=== PATIENT | male | born 1960 | race Caucasian/White ===

== ENCOUNTER 2020-10-21 09:10 | Day surgery (SDC) | payer OTHER ==
[2020-10-18 15:21] LABS: BASOPHILS # (AUTO) 0.1 X10'3 (0-0.2); BASOPHILS % (AUTO) 0.7 % (0-1); EOSINOPHILS # (AUTO) 0.2 X10'3 (0-0.9); EOSINOPHILS % (AUTO) 2.5 % (0-6); LYMPHOCYTES # (AUTO) 2.2 X10'3 (1.1-4.8); LYMPHOCYTES % (AUTO) 22.1 % (21-51); MEAN CORPUSCULAR HEMOGLOBIN 31.7 PG (27.0-31.0); MEAN CORPUSCULAR HGB CONC 34.5 g/dL (33.0-36.5); MEAN CORPUSCULAR VOLUME 91.8 FL (78-98); MEAN PLATELET VOLUME 7.2 FL (7.4-10.4); MONOCYTES % (AUTO) 9.8 % (2-12); NEUTROPHILS # (AUTO) 6.3 X10'3 (1.8-7.7); NEUTROPHILS % (AUTO) 64.9 % (42-75); PRE OP HEMATOCRIT 44.5 % (42.0-52.0); PRE OP HEMOGLOBIN 15.4 g/dL (14.0-17.9); PRE OP PLATELET COUNT 251 X10'3 (140-440); RED BLOOD COUNT 4.85 X10'6 (4.70-6.10); RED CELL DISTRIBUTION WIDTH 13.5 % (11.5-14.5)
[2020-10-18 15:37] LABS: ALBUMIN 3.9 G/DL (3.4-5.0); ALBUMIN/GLOBULIN RATIO 1.1 (1.1-1.5); ALKALINE PHOSPHATASE 103 IU/L (46-116); BLOOD UREA NITROGEN 12 MG/DL (7-18); BUN/CREATININE RATIO 15.2 (5.4-32.0); CALCIUM 9.6 MG/DL (8.5-10.1); CHLORIDE 104 MMOL/L (99-107); CREATININE 0.79 MG/DL (0.60-1.10); PRE OP ALT 29 U/L (30-65); PRE OP ANION GAP 7 (8-16); PRE OP AST 20 U/L (10-37); PRE OP BILIRUB, TOTAL 1.2 MG/DL (0.0-1.0); PRE OP GLUCOSE 110 MG/DL (70-104); PRE OP POTASSIUM 3.7 MMOL/L (3.4-5.1); PRE OP SODIUM 140 MMOL/L (135-145); TOTAL CARBON DIOXIDE 28.6 MMOL/L (24-32); TOTAL PROTEIN 7.5 G/DL (6.4-8.2); eGFR > 90 ML/MIN
[2020-10-21] VITALS (8 sets, daily range): BP systolic 143–170; BP diastolic 90–110
[~2020-10-21] VITALS: Ht 185.4 cm; Wt 126.5 kg
[~2020-10-21 09:10] MED LIST: AMLO10TA PO; BUPIVAcaine/PF 2.5 mg/ml (0.25%) 30ml vial ONE; BUPR1FIL3 SL; CARV25TA56 PO; DOCUMENT DATE & TIME OF BETA-BLOCKER PO ONE; LIDOcaine 1% 30ml preserv. free vial ONE; LISI40TA13 PO; PANT-47 PO; SPIR50TA5 PO; ceFAZolin 2gm in dextrose, iso 50 ML IV ONE; famotidine 20mg tablet PO ONE; meperidine/PF 25mg/ml syringe IV PRN; morphine 2 MG/ML inj. syringe IV PRN; morphine 4 MG/ML inj SYRINge IV PRN; ondansetron/PF 4mg/2ml inj IV PRN; proCHLORperazine 10 MG/2 ml inj IV PRN; ringers solution, lacted 1,000 ML IV SCH
--- NOTE | 2020-10-21 10:00 | NUR ---
PT PAINFUL 01/27 OVER ALL ACHE D/T STOPPING SUBOXONE RECENTLY. PT WAS FORCED TO STOP BY [facility] D/T RECEIVING NARCOTIC ORDER FOR PENDING SX Addendum: 10/21/20 at 1244 by Kesha Fraga RN Amended: Links added.
[2020-10-21] MEDS ORDERED: amLODIPine 5mg tablet PO ONE (10:35)
[2020-10-21] MEDS ORDERED: carVEDilol 12.5mg tablet PO ONE (10:35)
[2020-10-21] MEDS ORDERED: BUPIVAcaine/PF 2.5mg/ml (0.25%) 10ml vial ONE (12:29)
[2020-10-21] MEDS ORDERED: BUPIVACAINE liposomal/PF 13.3 MG/ML vial IM ONE (12:29)
[2020-10-21] MEDS ORDERED: sevoflurane 250ml liquid IH ONE (12:32)
[2020-10-21] MEDS ORDERED: ketorolac trometh. 30mg/ml inj. ONE (12:32)
[2020-10-21] MEDS ORDERED: MIDAZolam 1 MG/ML 5ML VIAL ONE (12:32)
[2020-10-21] MEDS ORDERED: neostigmine methylsulfate 1 MG/ML 10ml vial ONE (12:32)
[2020-10-21] MEDS ORDERED: fentaNYL /PF 50mcg/ml 5ml ampule ONE (12:32)
[2020-10-21] MEDS ORDERED: glycopyrrolate 0.2mg/ml inj ONE (12:32)
[2020-10-21] MEDS ORDERED: ondansetron/PF 4mg/2ml inj ONE (12:32)
[2020-10-21] MEDS ORDERED: dexamethasone sod phosphate 4mg/ml inj. ONE (12:37)
[2020-10-21] MEDS ORDERED: rocuronium 10mg/ml inj IV ONE ×2 (12:37→13:27)
[2020-10-21] MEDS ORDERED: propofol inj 20 ML IV ONE (12:37)
[2020-10-21] MEDS ORDERED: LIDOcaine 2% (20mg/ml) 5ml vial ONE (12:37)
[2020-10-21] MEDS ORDERED: acetaminophen 1,000mg/100ml IV 100 ML IV ONE (14:24)
[2020-10-21] MEDS ORDERED: oxyCODONE/APAP 10/325mg tablet PO PRN ×2 (14:40)
--- NOTE | 2020-10-21 14:45 | NUR ---
Received from OR via [facility] , accompanied by Anesthesiologist YANG and report given by Anesthesiolgist. PATIENT WITH 20G PIV IN LEFT UE RUNNING LR AT 100. NON VERBAL AT THIS TIME. VSS-MD AWARE OF HTN AT THIS TIME. ABDOMINAL BINDER PRESENT AND 4 ABDOMINAL BANDAIDS PRESENT. VSS. Addendum: 10/21/20 at 1456 by Tomer Amado RN, RN Amended: Links added.
--- NOTE | 2020-10-21 15:50 | NUR ---
I HAVE REVIEWED D/C INSTRUCTIONS WITH PATIENT AND FAMILY AND THEY HAVE VERBALIZED UNDERSTANDING. PATIENT D/C HOME WITH ALL BELONGINGS AND FAMILY GAVE TRANSPORT HOME. PATIENT STATES THAT HE WISHES TO GO HOME. PATIENT DANGLED AT BEDSIDE AND DONNED CLOTHES. COMPLAINS OF HIP PAIN MORE THAN ABDOMINAL PAIN. PATIENT OUT VIA WHEELCHAIR TO PERSONAL VEHICLE. SAFELY TRANSFERED INTO FRONT PASSENGER SEAT. PATIENT VSS. PATIENT ALREADY HAS PRESCRIPTION. Addendum: 10/21/20 at 1559 by Tomer Amado RN, RN Amended: Links added. Addendum: 10/21/20 at 1601 by Tomer Amado RN, RN I HAVE REVIEWED D/C INSTRUCTIONS WITH PATIENT AND FAMILY AND THEY HAVE VERBALIZED UNDERSTANDING. PATIENT D/C HOME WITH ALL BELONGINGS AND FAMILY GAVE TRANSPORT HOME. PATIENT STATES THAT HE WISHES TO GO HOME. PATIENT DANGLED AT BEDSIDE AND DONNED CLOTHES. COMPLAINS OF HIP PAIN MORE THAN ABDOMINAL PAIN. PATIENT OUT VIA WHEELCHAIR TO PERSONAL VEHICLE. SAFELY TRANSFERED INTO FRONT PASSENGER SEAT. PATIENT VSS. PATIENT ALREADY HAS PRESCRIPTION. Addendum: 10/21/20 at 1559 by Tomer Amado RN, RN Amended: Links added.
== END 2020-10-21 15:45 | disposition home or self-care (01) ==
LOC: PRE-OP 09:10 → PAS 15:45
PROVIDERS: ATTEND Surgery
DX: K43.6 Other and unspecified ventral hernia with obstruction, without gangrene (principal); I10 Essential (primary) hypertension; J44.9 Chronic obstructive pulmonary disease, unspecified; G89.29 Other chronic pain; K21.9 Gastro-esophageal reflux disease without esophagitis; M19.90 Unspecified osteoarthritis, unspecified site; F32.9 Major depressive disorder, single episode, unspecified; F41.9 Anxiety disorder, unspecified; F43.10 Post-traumatic stress disorder, unspecified; F11.10 Opioid abuse, uncomplicated; E66.9 Obesity, unspecified; Z68.41 Body mass index [BMI] 40.0-44.9, adult; Z87.19 Personal history of other diseases of the digestive system; Z20.822 Contact with and (suspected) exposure to COVID-19; Z79.899 Other long term (current) drug therapy; Z96.641 Presence of right artificial hip joint; F17.210 Nicotine dependence, cigarettes, uncomplicated; F12.90 Cannabis use, unspecified, uncomplicated; Z98.890 Other specified postprocedural states; Z81.8 Family history of other mental and behavioral disorders
CPT/HCPCS: 36415; 49653; 64488; 80053; 82948; 85025; 87635; 93005; C1758; C1781; C9290; J0131; J1100; J1885; J2001; J2175; J2250; J2270; J2405; J2704; J2710; J3010; J3490; A4215; A4618; J7120

== ENCOUNTER 2021-06-08 16:45 | Emergency (ER) | payer OTHER, MEDICAID ==
[~2021-06-08] VITALS: Ht 167.6 cm; Wt 129.6 kg
[~2021-06-08 16:45] MED LIST changes: -BUPIVAcaine/PF 2.5 mg/ml (0.25%) 30ml vial ONE; -DOCUMENT DATE & TIME OF BETA-BLOCKER PO ONE; -LIDOcaine 1% 30ml preserv. free vial ONE; -ceFAZolin 2gm in dextrose, iso 50 ML IV ONE; -famotidine 20mg tablet PO ONE; -meperidine/PF 25mg/ml syringe IV PRN; -morphine 2 MG/ML inj. syringe IV PRN; -morphine 4 MG/ML inj SYRINge IV PRN; -ondansetron/PF 4mg/2ml inj IV PRN; -proCHLORperazine 10 MG/2 ml inj IV PRN; -ringers solution, lacted 1,000 ML IV SCH
[2021-06-08 17:40] LABS: ALANINE AMINOTRANSFERASE 37 U/L (12-78); ALBUMIN 3.2 G/DL (3.4-5.0); ALBUMIN/GLOBULIN RATIO 0.8 (1.1-1.5); ALKALINE PHOSPHATASE 107 IU/L (46-116); ANION GAP 11 (8-16); ASPARTATE AMINO TRANSFERASE 26 U/L (10-37); BILIRUBIN,TOTAL 0.6 MG/DL (0.1-1.0); BLOOD UREA NITROGEN 12 MG/DL (7-18); BUN/CREATININE RATIO 13.8 (5.4-32.0); C-REACTIVE PROTEIN 2.44 MG/DL (0.0-0.5); CALCIUM 8.9 MG/DL (8.5-10.1); CHLORIDE 105 MMOL/L (99-107); CREATININE 0.87 MG/DL (0.60-1.10); GLUCOSE 124 MG/DL (70-104); POTASSIUM 3.5 MMOL/L (3.5-5.1); SODIUM 144 MMOL/L (135-145); TOTAL CARBON DIOXIDE 27.7 MMOL/L (24-32); TOTAL PROTEIN 7.3 G/DL (6.4-8.2); eGFR 89 ML/MIN
[2021-06-08 17:44] LABS: HEMATOCRIT 44.2 % (42.0-52.0); HEMOGLOBIN 15.1 g/dl (14.0-17.9); MEAN CORPUSCULAR HEMOGLOBIN 31.6 PG (27.0-31.0); MEAN CORPUSCULAR HGB CONC 34.2 g/dL (33.0-36.5); MEAN CORPUSCULAR VOLUME 92.4 FL (78-98); PLATELET COUNT 297 X10'3 (140-440); RED BLOOD COUNT 4.78 X10'6 (4.70-6.10); RED CELL DISTRIBUTION WIDTH 13.5 % (11.5-14.5); WHITE BLOOD COUNT 6.5 X10'3 (4.5-11.0)
[2021-06-08 17:45] LABS: BASOPHILS % (AUTO) 0.8 % (0-1); EOSINOPHILS # (AUTO) 0.3 X10'3 (0-0.9); EOSINOPHILS % (AUTO) 4.7 % (0-6); LYMPHOCYTES # (AUTO) 1.5 X10'3 (1.1-4.8); LYMPHOCYTES % (AUTO) 23.2 % (21-51); MEAN PLATELET VOLUME 7.2 FL (7.4-10.4); MONOCYTES # (AUTO) 0.6 X10'3 (0-0.9); MONOCYTES % (AUTO) 9.6 % (2-12); NEUTROPHILS % (AUTO) 61.7 % (42-75)
[2021-06-08] MEDS ORDERED: cloNIDine 0.1 mg tablet PO ONE (20:35)
[2021-06-08] MEDS ORDERED: hydrALAZINE 20mg/ml inj. IV ONE (20:40)
[2021-06-08] MEDS ORDERED: furosemide 10 MG/1 ML 10ml inj IV ONE ×2 (20:40→23:20)
[2021-06-08 22:30] VITALS: BP 210/78
[2021-06-08] MEDS ORDERED: buprenorphine/naloxone 8MG-2MG SUBlingual film SL ONE (22:30)
[2021-06-08] MEDS ORDERED: clindamycin 600mg/D5W 50ml 50 ML IV ONE (23:20)
[2021-06-08] MEDS ORDERED: CLIN-97 PO (23:24)
[2021-06-08] MEDS ORDERED: FURO-150 PO (23:24)
[2021-06-08] MEDS ORDERED: POTA20PA40 PO (23:24)
[2021-06-08] MEDS ORDERED: clindamycin 150mg capsule PO ONE (23:40)
== END 2021-06-09 00:08 | disposition home or self-care (01) ==
LOC: ER 16:45
DX: I83.028 Varicose veins of left lower extremity with ulcer other part of lower leg (principal); I87.8 Other specified disorders of veins; L03.116 Cellulitis of left lower limb; I10 Essential (primary) hypertension; Z79.2 Long term (current) use of antibiotics; Z79.899 Other long term (current) drug therapy
CPT/HCPCS: 36415; 80053; 83605; 83880; 84145; 85025; 85651; 86140; 87040; 93922; 93926; 96374; 96375; 96376; 99285; J0360; J1940

== ENCOUNTER 2021-06-14 06:50 | Inpatient (IN) | payer OTHER, MEDICAID ==
[~2021-06-14] VITALS: Ht 193 cm; Wt 127.0 kg
[~2021-06-14 06:50] MED LIST changes: +CLIN-97 PO; +FURO-150 PO; +POTA20PA40 PO
[2021-06-14 08:30] LABS: BASOPHILS # (AUTO) 0.1 X10'3 (0-0.2); BASOPHILS % (AUTO) 0.7 % (0-1); EOSINOPHILS # (AUTO) 0.3 X10'3 (0-0.9); EOSINOPHILS % (AUTO) 3.9 % (0-6); HEMATOCRIT 42.3 % (42.0-52.0); HEMOGLOBIN 14.8 g/dl (14.0-17.9); LYMPHOCYTES # (AUTO) 2.1 X10'3 (1.1-4.8); LYMPHOCYTES % (AUTO) 26.6 % (21-51); MEAN CORPUSCULAR HEMOGLOBIN 31.7 PG (27.0-31.0); MEAN CORPUSCULAR HGB CONC 34.9 g/dL (33.0-36.5); MEAN CORPUSCULAR VOLUME 90.7 FL (78-98); MEAN PLATELET VOLUME 7.2 FL (7.4-10.4); MONOCYTES % (AUTO) 13.1 % (2-12); NEUTROPHILS # (AUTO) 4.3 X10'3 (1.8-7.7); NEUTROPHILS % (AUTO) 55.7 % (42-75); PLATELET COUNT 296 X10'3 (140-440); RED BLOOD COUNT 4.67 X10'6 (4.70-6.10); RED CELL DISTRIBUTION WIDTH 13.5 % (11.5-14.5); WHITE BLOOD COUNT 7.7 X10'3 (4.5-11.0)
[2021-06-14 09:20] LABS: ALANINE AMINOTRANSFERASE 31 U/L (12-78); ALBUMIN 3.1 G/DL (3.4-5.0); ALBUMIN/GLOBULIN RATIO 0.8 (1.1-1.5); ALKALINE PHOSPHATASE 104 IU/L (46-116); ANION GAP 8 (8-16); ASPARTATE AMINO TRANSFERASE 19 U/L (10-37); BILIRUBIN,TOTAL 0.7 MG/DL (0.1-1.0); BLOOD UREA NITROGEN 18 MG/DL (7-18); BUN/CREATININE RATIO 19.1 (5.4-32.0); CALCIUM 9.2 MG/DL (8.5-10.1); CHLORIDE 102 MMOL/L (99-107); CREATININE 0.94 MG/DL (0.60-1.10); GLUCOSE 132 MG/DL (70-104); POTASSIUM 3.4 MMOL/L (3.5-5.1); SODIUM 141 MMOL/L (135-145); TOTAL CARBON DIOXIDE 31.4 MMOL/L (24-32); TOTAL PROTEIN 7.1 G/DL (6.4-8.2); eGFR 82 ML/MIN
[2021-06-14] MEDS ORDERED: furosemide 10 MG/1 ML 10ml inj IV ONE (13:40)
[2021-06-14] MEDS ORDERED: piperacillin/tazo 3.375gm/50ml 50 ML IV ONE (13:40)
[2021-06-14] MEDS ORDERED: vancomycin/NS 1 GM ADD-VANTAGE 250 ML IV ONE (13:40)
[2021-06-14 14:00] LABS: C-REACTIVE PROTEIN 5.77 MG/DL (0.0-0.5)
[2021-06-14] MEDS ORDERED: ondansetron/PF 4mg/2ml inj IV PRN (14:10)
[2021-06-14] MEDS ORDERED: magnesium hydroxide 30ml (MOM) UD suspension PO PRN (14:10)
[2021-06-14] MEDS ORDERED: potassium Cl 40MEQ/1/2NS 520ml 520 ML IV PRN ×2 (14:10)
[2021-06-14] MEDS ORDERED: mag hydrox/Alum hydrox/simeth 30ml oral suspension PO PRN (14:10)
[2021-06-14] MEDS: potassium Cl 20 mEq SR tablet PO PRN ×3 (15:00→20:19)
[2021-06-14] MEDS ORDERED: buprenorphine/naloxone 8MG-2MG SUBlingual film SL STA (15:04)
[2021-06-14] MEDS ORDERED: FURO20TA4 PO (15:09)
[2021-06-14] MEDS ORDERED: CLIN300C56 PO (15:09)
[2021-06-14] MEDS ORDERED: POTA-207 PO (15:09)
[2021-06-14] MEDS ORDERED: DICL100G60 TP (15:30)
[2021-06-14] MEDS ORDERED: MELO-102 PO (15:30)
[2021-06-14] MEDS ORDERED: CLON0.1T PO (15:30)
[2021-06-14] MEDS ORDERED: MULT-1085 PO (15:30)
[2021-06-14] MEDS ORDERED: BUPR1TAB45 SL (15:30)
[2021-06-14] MEDS ORDERED: LIDO700A32 TOP (15:30)
[2021-06-14] MEDS ORDERED: cloNIDine 0.1 mg tablet PO PRN (15:35)
[2021-06-14] MEDS ORDERED: LIDOcaine 5% patch TP PRN (15:35)
[2021-06-14] MEDS: piperacillin/tazo 3.375gm/50ml 50 ML IV SCH (16:00)
[2021-06-14] MEDS: carVEDilol 12.5mg tablet PO SCH (18:00)
[2021-06-14] MEDS: docusate sod 100mg capsule PO SCH (19:49)
[2021-06-14] MEDS: heparin, porcine 5000 units/ml vial SQ SCH (20:00)
[2021-06-14] MEDS: K and/or MAG REPLACEMENT MC SCH (20:17)
[2021-06-14] MEDS ORDERED: buprenorphine/naloxone 8mg/2mg SL tablet SL SCH (21:00)
[2021-06-14] MEDS ORDERED: buprenorphine/naloxone 8MG-2MG SUBlingual film SL SCH (22:47)
[2021-06-14] MEDS: vancomycin/NS 1 GM ADD-VANTAGE 250 ML IV SCH (22:54)
[2021-06-15] VITALS: BP 157/101
--- NOTE | 2021-06-15 | NUR ---
PATIENT ADMITTED TO ROOM 357B FRO ER FOR BILATERAL LOWER LEGS INFECTED WOUND. PLACED COMFORTABLE IN BED. VITAL SIGNS TAKEN AND RECORDED.
[2021-06-15] MEDS: piperacillin/tazo 3.375gm/50ml 50 ML IV SCH ×2 (02:19→08:00)
[2021-06-15] MEDS: vancomycin/NS 1 GM ADD-VANTAGE 250 ML IV SCH ×3 (06:08→22:54)
[2021-06-15 06:21] LABS: BASOPHILS % (AUTO) 0.5 % (0-1); EOSINOPHILS # (AUTO) 0.3 X10'3 (0-0.9); EOSINOPHILS % (AUTO) 3.7 % (0-6); HEMATOCRIT 39.1 % (42.0-52.0); HEMOGLOBIN 13.7 g/dl (14.0-17.9); LYMPHOCYTES # (AUTO) 1.6 X10'3 (1.1-4.8); LYMPHOCYTES % (AUTO) 21.1 % (21-51); MEAN CORPUSCULAR HEMOGLOBIN 31.7 PG (27.0-31.0); MEAN CORPUSCULAR HGB CONC 35.1 g/dL (33.0-36.5); MEAN CORPUSCULAR VOLUME 90.3 FL (78-98); MEAN PLATELET VOLUME 7.1 FL (7.4-10.4); MONOCYTES # (AUTO) 0.9 X10'3 (0-0.9); MONOCYTES % (AUTO) 12.6 % (2-12); NEUTROPHILS # (AUTO) 4.7 X10'3 (1.8-7.7); NEUTROPHILS % (AUTO) 62.1 % (42-75); PLATELET COUNT 270 X10'3 (140-440); RED BLOOD COUNT 4.33 X10'6 (4.70-6.10); RED CELL DISTRIBUTION WIDTH 13.4 % (11.5-14.5); WHITE BLOOD COUNT 7.5 X10'3 (4.5-11.0)
--- NOTE | 2021-06-15 06:30 | NUR ---
Problems reprioritized. Patient report given, questions answered & plan of care reviewed with TONNY DIAZ.
[2021-06-15 06:34] LABS: ALANINE AMINOTRANSFERASE 24 U/L (12-78); ALBUMIN 2.6 G/DL (3.4-5.0); ALBUMIN/GLOBULIN RATIO 0.7 (1.1-1.5); ALKALINE PHOSPHATASE 82 IU/L (46-116); ANION GAP 6 (8-16); ASPARTATE AMINO TRANSFERASE 15 U/L (10-37); BILIRUBIN,TOTAL 0.8 MG/DL (0.1-1.0); BLOOD UREA NITROGEN 15 MG/DL (7-18); BUN/CREATININE RATIO 18.3 (5.4-32.0); CALCIUM 8.9 MG/DL (8.5-10.1); CHLORIDE 104 MMOL/L (99-107); CREATININE 0.82 MG/DL (0.60-1.10); GLUCOSE 115 MG/DL (70-104); SODIUM 141 MMOL/L (135-145); TOTAL CARBON DIOXIDE 30.6 MMOL/L (24-32); TOTAL PROTEIN 6.3 G/DL (6.4-8.2); eGFR > 90 ML/MIN
[2021-06-15] MEDS: K and/or MAG REPLACEMENT MC SCH ×2 (07:03→22:58)
[2021-06-15] MEDS: lisinopril 20mg tablet PO SCH (07:12)
[2021-06-15] MEDS: carVEDilol 12.5mg tablet PO SCH ×2 (07:12→17:18)
[2021-06-15] MEDS: amLODIPine 5mg tablet PO SCH (07:13)
[2021-06-15] MEDS: heparin, porcine 5000 units/ml vial SQ SCH ×2 (07:13→21:40)
[2021-06-15] MEDS: potassium Cl 20 mEq SR tablet PO PRN ×4 (07:20→23:00)
[2021-06-15] MEDS: docusate sod 100mg capsule PO SCH ×2 (07:20→22:57)
[2021-06-15] MEDS: acetaminophen 325mg tablet PO PRN (07:20)
[2021-06-15 08:00] VITALS: BP 161/101
[2021-06-15] MEDS ORDERED: furosemide 20MG tablet PO SCH (08:00)
[2021-06-15 11:00] VITALS: BP 127/80
[2021-06-15] MEDS: buprenorphine/naloxone 8MG-2MG SUBlingual film SL SCH ×3 (11:11→22:55)
[2021-06-15] MEDS ORDERED: VANCOMYCIN LEVEL IV ONE (13:30)
[2021-06-15 20:00] VITALS: BP 110/75
[2021-06-15] MEDS: CEFEPIME 2gm in D5W 50mL 50 ML IV SCH (21:30)
[2021-06-15] MEDS: furosemide 40mg/4ml inj IV SCH (21:35)
[2021-06-15] MEDS: lactobacillus rhamnosus 10,000 MMU CELLS/CAPSULE PO SCH (21:41)
[2021-06-16] VITALS: BP 115/67
[2021-06-16] MEDS: vancomycin/NS 1 GM ADD-VANTAGE 250 ML IV SCH ×3 (06:05→22:16)
[2021-06-16 06:21] LABS: BASOPHILS # (AUTO) 0.1 X10'3 (0-0.2); BASOPHILS % (AUTO) 0.8 % (0-1); EOSINOPHILS # (AUTO) 0.3 X10'3 (0-0.9); EOSINOPHILS % (AUTO) 4.1 % (0-6); HEMATOCRIT 39.5 % (42.0-52.0); HEMOGLOBIN 13.7 g/dl (14.0-17.9); LYMPHOCYTES # (AUTO) 1.8 X10'3 (1.1-4.8); LYMPHOCYTES % (AUTO) 26.5 % (21-51); MEAN CORPUSCULAR HEMOGLOBIN 31.8 PG (27.0-31.0); MEAN CORPUSCULAR HGB CONC 34.6 g/dL (33.0-36.5); MEAN PLATELET VOLUME 7.3 FL (7.4-10.4); MONOCYTES # (AUTO) 0.9 X10'3 (0-0.9); MONOCYTES % (AUTO) 12.9 % (2-12); NEUTROPHILS # (AUTO) 3.8 X10'3 (1.8-7.7); NEUTROPHILS % (AUTO) 55.7 % (42-75); PLATELET COUNT 262 X10'3 (140-440); RED BLOOD COUNT 4.29 X10'6 (4.70-6.10); RED CELL DISTRIBUTION WIDTH 13.5 % (11.5-14.5); WHITE BLOOD COUNT 6.8 X10'3 (4.5-11.0)
--- NOTE | 2021-06-16 06:30 | NUR ---
Problems reprioritized. Patient report given, questions answered & plan of care reviewed with JOSÉ DIAZ.
--- NOTE | 2021-06-16 06:42 | NUR ---
Patient in room [facility]. I have received report from Yanely Ny RN and had the opportunity to ask questions and assume patient care.
[2021-06-16 08:00] VITALS: BP 159/95
[2021-06-16] MEDS: buprenorphine/naloxone 8MG-2MG SUBlingual film SL SCH ×3 (08:42→21:46)
[2021-06-16] MEDS: lisinopril 20mg tablet PO SCH (08:43)
[2021-06-16] MEDS: CEFEPIME 2gm in D5W 50mL 50 ML IV SCH ×2 (08:44→21:45)
[2021-06-16] MEDS: amLODIPine 5mg tablet PO SCH (08:44)
[2021-06-16] MEDS: carVEDilol 12.5mg tablet PO SCH ×2 (08:45→17:22)
[2021-06-16] MEDS: docusate sod 100mg capsule PO SCH ×2 (08:45→21:45)
[2021-06-16] MEDS: furosemide 40mg/4ml inj IV SCH ×2 (08:45→22:04)
[2021-06-16] MEDS: lactobacillus rhamnosus 10,000 MMU CELLS/CAPSULE PO SCH ×2 (08:45→21:45)
[2021-06-16] MEDS: heparin, porcine 5000 units/ml vial SQ SCH ×2 (08:46→22:05)
[2021-06-16 09:29] LABS: ALANINE AMINOTRANSFERASE 26 U/L (12-78); ALBUMIN 2.7 G/DL (3.4-5.0); ALBUMIN/GLOBULIN RATIO 0.7 (1.1-1.5); ALKALINE PHOSPHATASE 83 IU/L (46-116); ANION GAP 5 (8-16); ASPARTATE AMINO TRANSFERASE 19 U/L (10-37); BILIRUBIN,TOTAL 0.7 MG/DL (0.1-1.0); BLOOD UREA NITROGEN 14 MG/DL (7-18); BUN/CREATININE RATIO 16.3 (5.4-32.0); CALCIUM 8.7 MG/DL (8.5-10.1); CHLORIDE 105 MMOL/L (99-107); CREATININE 0.86 MG/DL (0.60-1.10); GLUCOSE 123 MG/DL (70-104); POTASSIUM 3.7 MMOL/L (3.5-5.1); SODIUM 143 MMOL/L (135-145); TOTAL PROTEIN 6.5 G/DL (6.4-8.2); eGFR 90 ML/MIN
[2021-06-16] MEDS: acetaminophen 325mg tablet PO PRN (11:22)
[2021-06-16 12:00] VITALS: BP 147/96
--- NOTE | 2021-06-16 12:00 | NUR ---
Wound care performed. Wound on left leg clean with normal saline, Xeroform applied, leg wrapped with cotton and Kerlix and secure with tape. R wound on right leg was clean with normal saline, Xeroform applied , covered with gauze, secure with tape
--- NOTE | 2021-06-16 18:35 | NUR ---
Problems reprioritized. Patient report given, questions answered & plan of care reviewed with Zelalem DIAZ.
[2021-06-16 20:00] VITALS: BP 135/86
[2021-06-16] MEDS: K and/or MAG REPLACEMENT MC SCH (20:00)
[2021-06-17] VITALS: BP 135/88
[2021-06-17] MEDS: vancomycin/NS 1 GM ADD-VANTAGE 250 ML IV SCH (05:39)
--- NOTE | 2021-06-17 06:27 | NUR ---
Patient in room [facility]. I have received report from Zelalem DIAZ and had the opportunity to ask questions and assume patient care.
[2021-06-17 06:33] LABS: BASOPHILS % (AUTO) 0.7 % (0-1); EOSINOPHILS # (AUTO) 0.3 X10'3 (0-0.9); EOSINOPHILS % (AUTO) 4.5 % (0-6); HEMATOCRIT 40.4 % (42.0-52.0); HEMOGLOBIN 14.2 g/dl (14.0-17.9); LYMPHOCYTES # (AUTO) 1.6 X10'3 (1.1-4.8); LYMPHOCYTES % (AUTO) 25.8 % (21-51); MEAN CORPUSCULAR HGB CONC 35.2 g/dL (33.0-36.5); MEAN CORPUSCULAR VOLUME 90.8 FL (78-98); MEAN PLATELET VOLUME 7.1 FL (7.4-10.4); MONOCYTES # (AUTO) 0.7 X10'3 (0-0.9); MONOCYTES % (AUTO) 11.3 % (2-12); NEUTROPHILS # (AUTO) 3.7 X10'3 (1.8-7.7); NEUTROPHILS % (AUTO) 57.7 % (42-75); PLATELET COUNT 263 X10'3 (140-440); RED BLOOD COUNT 4.45 X10'6 (4.70-6.10); RED CELL DISTRIBUTION WIDTH 13.3 % (11.5-14.5); WHITE BLOOD COUNT 6.4 X10'3 (4.5-11.0)
[2021-06-17 06:41] LABS: ALANINE AMINOTRANSFERASE 24 U/L (12-78); ALBUMIN 2.6 G/DL (3.4-5.0); ALBUMIN/GLOBULIN RATIO 0.7 (1.1-1.5); ALKALINE PHOSPHATASE 83 IU/L (46-116); ANION GAP 3 (8-16); ASPARTATE AMINO TRANSFERASE 18 U/L (10-37); BILIRUBIN,TOTAL 0.9 MG/DL (0.1-1.0); BLOOD UREA NITROGEN 14 MG/DL (7-18); BUN/CREATININE RATIO 15.9 (5.4-32.0); CALCIUM 8.9 MG/DL (8.5-10.1); CHLORIDE 106 MMOL/L (99-107); CREATININE 0.88 MG/DL (0.60-1.10); GLUCOSE 101 MG/DL (70-104); POTASSIUM 3.5 MMOL/L (3.5-5.1); SODIUM 141 MMOL/L (135-145); TOTAL CARBON DIOXIDE 31.7 MMOL/L (24-32); TOTAL PROTEIN 6.6 G/DL (6.4-8.2); eGFR 88 ML/MIN
[2021-06-17 08:00] VITALS: BP 169/109
[2021-06-17] MEDS: docusate sod 100mg capsule PO SCH (08:00)
[2021-06-17] MEDS: K and/or MAG REPLACEMENT MC SCH (08:00)
[2021-06-17] MEDS: CEFEPIME 2gm in D5W 50mL 50 ML IV SCH (08:19)
[2021-06-17] MEDS: carVEDilol 12.5mg tablet PO SCH (08:20)
[2021-06-17] MEDS: buprenorphine/naloxone 8MG-2MG SUBlingual film SL SCH (08:21)
[2021-06-17] MEDS: furosemide 40mg/4ml inj IV SCH (08:21)
[2021-06-17] MEDS: lactobacillus rhamnosus 10,000 MMU CELLS/CAPSULE PO SCH (08:21)
[2021-06-17] MEDS: amLODIPine 5mg tablet PO SCH (08:21)
[2021-06-17] MEDS: lisinopril 20mg tablet PO SCH (08:21)
[2021-06-17] MEDS: heparin, porcine 5000 units/ml vial SQ SCH (08:22)
[2021-06-17] MEDS ORDERED: DOXY100C2 PO (10:51)
[2021-06-17] MEDS ORDERED: CEPH-585 PO (10:51)
[2021-06-17] MEDS ORDERED: FURO-149 PO (10:51)
[2021-06-17 11:00] VITALS: BP 142/98
--- NOTE | 2021-06-17 13:20 | NUR ---
Patient discharge in stable condition, IV was taken out, no swelling, no redness not. Discharge instruction given to patient/spouse Patient/spouse verbalized understanding of instruction given. Patient left unit using a wheelchair, accompany by spouse to a private vehicle.
== END 2021-06-17 13:30 | disposition home health service (06) | DRG 603 ==
LOC: ER 06:50 → ED HOLD 14:11 → SUR 3N 23:55
PROVIDERS: ADMIT Internal Medicine; ATTEND Family Medicine
DX: L03.116 Cellulitis of left lower limb (principal); I89.0 Lymphedema, not elsewhere classified; I87.8 Other specified disorders of veins; E87.6 Hypokalemia; I10 Essential (primary) hypertension; G89.4 Chronic pain syndrome; S81.801A Unspecified open wound, right lower leg, initial encounter; X58.XXXA Exposure to other specified factors, initial encounter; Y93.89 Activity, other specified; Y92.89 Other specified places as the place of occurrence of the external cause; Y99.8 Other external cause status; Z72.0 Tobacco use
CPT/HCPCS: 36415; 76937; 80053; 80202; 83605; 84132; 84145; 85025; 85651; 86140; 87040; 87081; 93970; 99285; G0378; J0692; J1644; J1940; J2543; J3370

== ENCOUNTER → 2021-10-04 | Day surgery (SDC) | payer OTHER, MEDICAID ==
[2021-09-28 16:49] LABS: BASOPHILS % (AUTO) 0.6 % (0-1); EOSINOPHILS # (AUTO) 0.3 X10'3 (0-0.9); EOSINOPHILS % (AUTO) 4.9 % (0-6); LYMPHOCYTES # (AUTO) 1.9 X10'3 (1.1-4.8); LYMPHOCYTES % (AUTO) 29.1 % (21-51); MEAN CORPUSCULAR HEMOGLOBIN 31.7 PG (27.0-31.0); MEAN CORPUSCULAR VOLUME 93.3 FL (78-98); MEAN PLATELET VOLUME 7.4 FL (7.4-10.4); MONOCYTES # (AUTO) 0.8 X10'3 (0-0.9); MONOCYTES % (AUTO) 12.4 % (2-12); NEUTROPHILS # (AUTO) 3.5 X10'3 (1.8-7.7); PRE OP HEMATOCRIT 40.6 % (42.0-52.0); PRE OP HEMOGLOBIN 13.8 g/dL (14.0-17.9); PRE OP PLATELET COUNT 251 X10'3 (140-440); RED BLOOD COUNT 4.35 X10'6 (4.70-6.10); RED CELL DISTRIBUTION WIDTH 13.6 % (11.5-14.5)
[2021-09-28 17:00] LABS: ALBUMIN 3.6 G/DL (3.4-5.0); ALKALINE PHOSPHATASE 102 IU/L (46-116); BLOOD UREA NITROGEN 13 MG/DL (7-18); CALCIUM 8.8 MG/DL (8.5-10.1); CHLORIDE 106 MMOL/L (99-107); CREATININE 0.59 MG/DL (0.60-1.10); PRE OP ALT 33 U/L (30-65); PRE OP ANION GAP 8 (8-16); PRE OP AST 22 U/L (10-37); PRE OP BILIRUB, TOTAL 0.6 MG/DL (0.0-1.0); PRE OP GLUCOSE 95 MG/DL (70-104); PRE OP POTASSIUM 3.9 MMOL/L (3.4-5.1); PRE OP SODIUM 141 MMOL/L (135-145); TOTAL PROTEIN 7.1 G/DL (6.4-8.2); eGFR > 90 ML/MIN
[~2021-10-04] VITALS: Ht 193 cm; Wt 127.0 kg
[~2021-10-04] MED LIST changes: -AMLO10TA PO; -BUPR1FIL3 SL; +BUPR1TAB45 SL; -CLIN-97 PO; +DOCUMENT DATE & TIME OF BETA-BLOCKER PO ONE; -FURO-150 PO; +FURO40TA4 PO; +HYDROmorphone 1 mg/ml syringe IV PRN; +HYDROmorphone inj. 0.5 MG/0.5 ML DISP.SYRIN IV PRN; -LISI40TA13 PO; +OXYC1TAB17 PO; -PANT-47 PO; -POTA20PA40 PO; -SPIR50TA5 PO; +VANCOMYCIN 1,500MG inj. 1,500 MG in dextrose 5% water 500ml 300 ML IV ONE; +acetaminophen 325mg tablet PO ONE; +acetaminophen 325mg tablet PO PRN; +ascorbic acid 500mg tablet PO SCH; +aspirin 325mg tablet PO SCH; +bisacodyl 10mg suppository rectal RC PRN; +buprenorphine/naloxone 8MG-2MG SUBlingual film SL SCH; +carVEDilol 12.5mg tablet PO SCH; +ceFAZolin inj. 3,000 MG in normal saline 100ml IV soln 100 ML IV ONE; +ceFAZolin/D5W- 1GM premix 50 ML IV SCH; +cefazolin/dext.iso 2gm/50ml 50 ML IV SCH; +celeCOXIB 100mg capsule PO ONE; +celeCOXIB 100mg capsule PO SCH; +diphenhydrAMINE 25mg capsule PO PRN; +famotidine 20mg tablet PO ONE; +furosemide 40mg tablet PO SCH; +gabapentin 300mg capsule PO ONE; +gabapentin 300mg capsule PO SCH; +magnesium hydroxide 30ml (MOM) UD suspension PO PRN; +metoclopramide 5 mg/ml inj IV ONE; +multivitamins, therapeutics tablet PO SCH; +ondansetron/PF 4mg/2ml inj IV PRN; +oxyCODONE IR 5mg (immed. release) tablet PO PRN; +oxyCODONE SR 10mg (sust. release) tab -2 tabs (20mg) PO ONE; +potassium cl 20mEq in 1/2 NS 1,000 ML IV SCH; +ringers solution, lacted 1,000 ML IV SCH; +sennosides 8.6mg tablet PO SCH; +tranexamic acid inj. 0 MG in normal saline 100ml IV soln 100 ML IV ONE; +tranexamic acid inj. 1,000 MG in 0.7% saline 100 ML PMX IV ONE; +vancomycin inj 1,750 MG in normal saline 500ml IV soln 350 ML IV ONE
== END | disposition home or self-care (01) ==
LOC: PAS 07:39
PROVIDERS: ATTEND Orthopaedic Surgery
DX: M16.12 Unilateral primary osteoarthritis, left hip (principal); Z53.8 Procedure and treatment not carried out for other reasons; J44.9 Chronic obstructive pulmonary disease, unspecified; I10 Essential (primary) hypertension; F32.A Depression, unspecified; G89.29 Other chronic pain; M19.90 Unspecified osteoarthritis, unspecified site; Z20.822 Contact with and (suspected) exposure to COVID-19; Z98.890 Other specified postprocedural states; Z96.649 Presence of unspecified artificial hip joint; Z86.19 Personal history of other infectious and parasitic diseases; Z79.899 Other long term (current) drug therapy; Z87.891 Personal history of nicotine dependence
CPT/HCPCS: 36415; 80053; 85025; 86885; 86900; 86901; 87081; U0003; U0005; J0690; J3370; J3480; J3490; J7040; J7060; J7120